=== PATIENT | male | born 1990 | race Caucasian/White ===

== ENCOUNTER 2019-09-02 08:22 | Emergency (ER) | payer SELFPAY ==
[~2019-09-02] VITALS: Ht 175.3 cm; Wt 58.5 kg
[2019-09-02 08:32] VITALS: BP 131/83; Ht 175.3 cm; Wt 58.5 kg
== END 2019-09-02 10:22 | disposition left against medical advice (07) ==
LOC: ED 08:22
DX: Z53.21 Procedure and treatment not carried out due to patient leaving prior to being seen by health care provider (principal)